=== PATIENT | male | born 1965 | race African-American/Black ===

== ENCOUNTER 2017-09-13 10:40 | Emergency (ER) | payer MEDICARE, OTHER ==
[~2017-09-13] VITALS: Ht 167.6 cm; Wt 67.0 kg
[2017-09-13] MEDS ORDERED: KETOROLAC 60MG/2ML VIAL IM ONE (11:30)
[2017-09-13] MEDS ORDERED: HYDROCODONE/ACETAMINOPHEN 5/325MG TABLET PO ONE (12:45)
[2017-09-13 13:05] VITALS: BP 118/71
== END 2017-09-13 13:06 | disposition home or self-care (01) ==
LOC: ER 10:40
DX: S01.81XA Laceration without foreign body of other part of head, initial encounter (principal); F12.10 Cannabis abuse, uncomplicated; W51.XXXA Accidental striking against or bumped into by another person, initial encounter; Y93.89 Activity, other specified; Y92.89 Other specified places as the place of occurrence of the external cause; Y99.8 Other external cause status
CPT/HCPCS: 70486; 96372; 99284; J1885

== ENCOUNTER 2019-06-18 18:15 | Emergency (ER) | payer MEDICARE, OTHER ==
[~2019-06-18] VITALS: Ht 170.2 cm; Wt 75.0 kg
[2019-06-18 19:40] VITALS: BP 121/79
[2019-06-18] MEDS ORDERED: HYDROCODONE/ACETAMINOPHEN 5/325MG TABLET PO ONE (19:45)
== END 2019-06-18 19:53 | disposition home or self-care (01) ==
LOC: ER 18:15
DX: K40.90 Unilateral inguinal hernia, without obstruction or gangrene, not specified as recurrent (principal); M19.90 Unspecified osteoarthritis, unspecified site
CPT/HCPCS: 99283

== ENCOUNTER 2020-05-03 19:27 | Emergency (ER) | payer BC, OTHER ==
[~2020-05-03] VITALS: Ht 170.2 cm; Wt 79.0 kg
[2020-05-03] MEDS ORDERED: KETOROLAC 30MG/ML VIAL IM ONE (20:30)
[2020-05-03 22:45] VITALS: BP 113/69
== END 2020-05-03 22:48 | disposition home or self-care (01) ==
LOC: ER 19:27
DX: M79.651 Pain in right thigh (principal); M19.90 Unspecified osteoarthritis, unspecified site; F12.10 Cannabis abuse, uncomplicated; Z87.828 Personal history of other (healed) physical injury and trauma
CPT/HCPCS: 73552; 93971; 96372; 99284; J1885

== ENCOUNTER 2020-09-08 10:00 | Emergency (ER) | payer MEDICARE, OTHER ==
[~2020-09-08] VITALS: Ht 170.2 cm; Wt 77.0 kg
[2020-09-08 12:16] VITALS: BP 141/83
== END 2020-09-08 12:20 | disposition home or self-care (01) ==
LOC: ER 10:32
DX: M16.11 Unilateral primary osteoarthritis, right hip (principal)
CPT/HCPCS: 73502; 99283

== ENCOUNTER 2021-01-27 13:33 | Emergency (ER) | payer MEDICARE, OTHER ==
[~2021-01-27] VITALS: Ht 170.2 cm; Wt 77.0 kg
[2021-01-27] MEDS ORDERED: IBUPROFEN 600MG TABLET PO ONE (14:30)
[2021-01-27] MEDS ORDERED: IBUP-2029 MT (15:12)
[2021-01-27 15:59] VITALS: BP 115/74
== END 2021-01-27 16:05 | disposition home or self-care (01) ==
LOC: ER 13:33
DX: M54.9 Dorsalgia, unspecified (principal); M19.90 Unspecified osteoarthritis, unspecified site; V43.52XA Car driver injured in collision with other type car in traffic accident, initial encounter; Y93.89 Activity, other specified; Y92.410 Unspecified street and highway as the place of occurrence of the external cause
CPT/HCPCS: 71045; 99283

== ENCOUNTER 2024-01-07 00:16 | Emergency (ER) | payer MEDICARE, MEDICAID ==
[~2024-01-07] VITALS: Ht 170.2 cm; Wt 76.0 kg
[~2024-01-07 00:16] MED LIST: IBUP-2029 MT
[2024-01-07 00:46] VITALS: O2SAT 96
[2024-01-07] MEDS: HYDROCODONE/ACETAMINOPHEN 5/325MG TABLET PO STA (04:11)
[2024-01-07] MEDS ORDERED: NAPR-681 PO (05:16)
[2024-01-07] MEDS ORDERED: CYCL5TAB PO (05:16)
[2024-01-07 05:26] VITALS: BP 135/77; PULSE 82; RESP 18; TEMP 97.3
== END 2024-01-07 05:29 | disposition home or self-care (01) ==
LOC: ER 00:48
DX: S00.83XA Contusion of other part of head, initial encounter (principal); F12.90 Cannabis use, unspecified, uncomplicated; V89.2XXA Person injured in unspecified motor-vehicle accident, traffic, initial encounter; Y93.89 Activity, other specified; Y92.89 Other specified places as the place of occurrence of the external cause; Y99.8 Other external cause status
CPT/HCPCS: 70486; 99284

== ENCOUNTER 2024-04-24 08:30 | Emergency (ER) | payer MEDICARE, MEDICAID ==
[~2024-04-24] VITALS: Ht 170.2 cm; Wt 74.8 kg
[~2024-04-24 08:30] MED LIST changes: +CYCL5TAB PO; +NAPR-681 PO
[2024-04-24 08:39] VITALS: O2SAT 99
[2024-04-24] MEDS: HYDROCODONE/ACETAMINOPHEN 5/325MG TABLET PO ONE (09:20)
[2024-04-24] MEDS ORDERED: T3 PO (09:38)
[2024-04-24] MEDS ORDERED: NAPR-681 MT (09:38)
[2024-04-24 09:59] VITALS: BP 124/82; PULSE 64; RESP 18; TEMP 98.5
== END 2024-04-24 10:01 | disposition home or self-care (01) ==
LOC: ER 09:17
DX: M19.90 Unspecified osteoarthritis, unspecified site (principal); F12.90 Cannabis use, unspecified, uncomplicated
CPT/HCPCS: 73110; 99283

== ENCOUNTER 2024-05-18 20:23 | Emergency (ER) | payer MEDICARE, MEDICAID ==
[~2024-05-18] VITALS: Ht 170.2 cm; Wt 74.0 kg
[~2024-05-18 20:23] MED LIST changes: +NAPR-681 MT; +T3 PO
[2024-05-18 20:47] VITALS: TEMP 98.2; O2SAT 100
[2024-05-18] MEDS: KETOROLAC 30MG/ML VIAL IM STA (23:10)
[2024-05-18 23:13] VITALS: BP 110/80; PULSE 70; RESP 15
== END 2024-05-18 23:14 | disposition home or self-care (01) ==
LOC: ER 20:23
DX: M54.2 Cervicalgia (principal); M54.9 Dorsalgia, unspecified; F12.10 Cannabis abuse, uncomplicated; Z79.899 Other long term (current) drug therapy
CPT/HCPCS: 99283; 96372; J1885